=== PATIENT | female | born 1935 | race Caucasian/White ===

== ENCOUNTER → 2020-02-12 | Outpatient (CLI) | payer OTHER ==
[~2020-02-12] MED LIST: ASPI81CH43 GT; ATEN50TA OR; BUPIVACAINE HCL 0.25% P/F 10 ML VIAL ONE; CLON0.1D7 TD; FOSI40TA OR; IOHEXOL 300 MG/ML 100ML BOTTLE IJ ONE; LIDOCAINE 2%HCL (LOCAL ANESTH.) INJ 20ML MDV ONE; PRAVACHOL; TRIA50TA2 OR; methylPREDNISolone ACETATE 80 MG/ML VL ONE
== END | disposition home or self-care (01) ==
LOC: XY 08:29
PROVIDERS: ATTEND Orthopaedic Surgery Adult Reconstructive Orthopaedic Surgery
DX: M25.551 Pain in right hip (principal); Z88.0 Allergy status to penicillin; Z88.8 Allergy status to other drugs, medicaments and biological substances; Z98.890 Other specified postprocedural states; Z79.899 Other long term (current) drug therapy
CPT/HCPCS: 20610; 73501; 77002; A4223; J1040; J3490; Q9967; 76000

== ENCOUNTER → 2020-04-17 | Outpatient (CLI) | payer OTHER ==
[~2020-04-17] MED LIST changes: -BUPIVACAINE HCL 0.25% P/F 10 ML VIAL ONE; -IOHEXOL 300 MG/ML 100ML BOTTLE IJ ONE; -LIDOCAINE 2%HCL (LOCAL ANESTH.) INJ 20ML MDV ONE; -methylPREDNISolone ACETATE 80 MG/ML VL ONE
== END | disposition home or self-care (01) ==
LOC: LAB 11:04
PROVIDERS: ATTEND Physician Assistant
DX: L65.9 Nonscarring hair loss, unspecified (principal)
CPT/HCPCS: 82306

== ENCOUNTER → 2020-09-16 | Outpatient (CLI) | payer OTHER ==
[~2020-09-16] VITALS: Ht 160 cm; Wt 72.6 kg
[~2020-09-16] MED LIST changes: +ADENOSINE 61 MG in GIVE UN-DILUTED 0 ML IV ONE
== END | disposition home or self-care (01) ==
LOC: XY 07:56
PROVIDERS: ATTEND Internal Medicine
DX: Z01.810 Encounter for preprocedural cardiovascular examination (principal); I12.9 Hypertensive chronic kidney disease with stage 1 through stage 4 chronic kidney disease, or unspecified chronic kidney disease; N18.2 Chronic kidney disease, stage 2 (mild); E78.5 Hyperlipidemia, unspecified
CPT/HCPCS: 78452; 93017; A9500; J0153

== ENCOUNTER → 2020-10-02 | Outpatient (CLI) | payer OTHER ==
[~2020-10-02] MED LIST changes: -ADENOSINE 61 MG in GIVE UN-DILUTED 0 ML IV ONE
== END | disposition home or self-care (01) ==
LOC: XYW 10:11
PROVIDERS: ATTEND Internal Medicine
DX: Z01.810 Encounter for preprocedural cardiovascular examination (principal); I51.7 Cardiomegaly
CPT/HCPCS: 93306

== ENCOUNTER 2020-10-19 06:05 | Inpatient (IN) | payer OTHER ==
[2020-10-15 10:08] LABS: Urine WBC None Seen /hpf (0 - 5)
[2020-10-15 10:14] LABS: Basophils # (auto) 0.1 10 ^3/uL (0-0.2); Basophils % (auto) 0.9 % (0.0-2.0); Eosinophils # (auto) 0.1 10 ^3/uL (0-0.8); Eosinophils % (auto) 1.3 % (0.0-7.0); Hematocrit 35.3 % (36.0-46.0); Hemoglobin 12.6 g/dL (12.2-16.2); Lymphocytes # (auto) 2.9 10 ^3/uL (0.4-5.4); Lymphocytes % (auto) 39.3 % (10.0-50.0); Mean Corpuscular Hemoglobin 30.9 pg (28.0-32.0); Mean Corpuscular Hgb Conc. 35.8 g/dL (32.0-36.0); Mean Corpuscular Volume 86.3 fL (80.0-100.0); Monocytes # (auto) 0.5 10 ^3/uL (0-1.3); Monocytes % (auto) 6.6 % (0.0-12.0); Neutrophils # (auto) 3.8 10 ^3/uL (1.6-8.6); Neutrophils % (auto) 51.9 % (37.0-80.0); Nucleated Red Blood Cells % 0.1 %; Red Blood Cells 4.09 10^6/uL (4.0-5.20); Red Cell Distribution Width 13.9 % (11.8-14.3); White Blood Cell 7.4 10^3/uL (4.4-10.8)
[2020-10-15 10:31] LABS: Albumin 3.4 g/dL (3.4-5.0); Calcium 8.8 mg/dL (8.5-10.1); Potassium 3.4 mmol/L (3.5-5.1)
[2020-10-15 10:35] LABS: BUN/Creatinine Ratio 22.9; Bilirubin, Total 0.6 mg/dL (0.2-1.0)
[2020-10-15 14:05] LABS: Urine Bacteria NONE SEEN /hpf (None Seen); Urine Blood Negative /uL (Negative); Urine Specific Gravity 1.017 (1.001-1.035)
[2020-10-19] VITALS (9 sets, daily range): BP systolic 109–131; BP diastolic 51–63
[~2020-10-19] VITALS: Ht 162.6 cm; Wt 82.5 kg
[~2020-10-19 06:05] MED LIST changes: +AMLO-496 PO; +ASCO500T11 PO; +ASPI-231 PO; -ATEN50TA OR; +BIOT50007 PO; +CALC667C5 PO; +CHOL200021 PO; -CLON0.1D7 TD; +MAGN400T40 OR; +MULT-551 OR; +MULT-688 PO; +OMEG10003 PO; +TURM1TAB PO
[2020-10-19] MEDS ORDERED: TRANEXAMIC ACID 20 ML ONE (06:58)
[2020-10-19] MEDS ORDERED: BUPIVACAINE 0.25% INJ 50ML VIAL ONE (06:58)
[2020-10-19] MEDS ORDERED: KETOROLAC TROMETH 30 MG/ML 1ML VIAL ONE (06:59)
[2020-10-19] MEDS ORDERED: VANCOMYCIN HCL 1000 MG VL ONE ×2 (07:00→07:08)
[2020-10-19] MEDS ORDERED: ACETAMINOPHEN IV 100 ML IV ONE (07:09)
[2020-10-19] MEDS ORDERED: TETRACAINE 1% INJ 2 ML VIAL IJ ONE (07:14)
[2020-10-19] MEDS ORDERED: PHENYLEPHRINE HCL 10 MG/ML VL IV ONE (07:19)
[2020-10-19] MEDS ORDERED: MORPHINE SULF(PF) 0.5MG/ML 10ML VIAL ONE (07:19)
[2020-10-19] MEDS ORDERED: MIDAZOLAM HCL 2MG/2ML 2ml VIAL (1mg/ml) ONE (07:19)
[2020-10-19] MEDS ORDERED: fentaNYL CITRATE 100 MCG/2 ML VL ONE (07:19)
[2020-10-19] MEDS ORDERED: DexAMETHasone SOD PHOS 10MG/1ML VIAL INJ IV ONE (07:19)
[2020-10-19] MEDS ORDERED: NALBUPHINE HCL 10 MG/1ml INJECTION SUBCUT ONE (07:45)
[2020-10-19] MEDS ORDERED: ePHEDrine SULFATE 50 MG/ML AMP IV PRN (07:45)
[2020-10-19] MEDS ORDERED: HYDROmorphone HCL 2 MG/ML VL IV PRN ×2 (07:45→09:30)
[2020-10-19] MEDS ORDERED: NALOXONE HCL 0.4 MG/ML VIAL IV PRN (07:45)
[2020-10-19] MEDS ORDERED: DexAMETHasone SOD PHOS 10MG/1ML VIAL INJ IV PRN (07:45)
[2020-10-19] MEDS ORDERED: diphenhdrAMINE HCL 50 MG/1 ML VL IV PRN (07:45)
[2020-10-19] MEDS ORDERED: hydrALAZINE HCL 20 MG/ML VL IV PRN (07:45)
[2020-10-19] MEDS ORDERED: LABETALOL HCL 5 MG/ML 4ML SYRINGE IV PRN (07:45)
[2020-10-19] MEDS ORDERED: ONDANSETRON HCL 4 MG/2 ML VIAL IV PRN ×2 (07:45→09:30)
[2020-10-19] MEDS ORDERED: ACETAMINOPHEN IV 1000 MG/100ML (10MG/ML) IV ONE (08:00)
[2020-10-19] MEDS ORDERED: MORPHINE SULFATE INJECTION 2 MG/2 ML SYRG IV PRN (09:30)
[2020-10-19] MEDS ORDERED: ACETAMINOPHEN 325 MG TAB PO PRN (09:30)
[2020-10-19] MEDS ORDERED: NITROGLYCERIN 0.4 MG SL TAB SL PRN (09:30)
[2020-10-19] MEDS ORDERED: VANCOMYCIN 1GM/250ML 250 ML IV SCH (10:00)
[2020-10-19] MEDS: LACTATED RINGER'S 1,000 ML IV SCH ×2 (10:01→19:30)
[2020-10-19] MEDS: amLODIPine BESYLATE 5 MG TAB PO SCH (10:31)
[2020-10-19] MEDS: DOCUSATE SOD 100 MG CAP PO SCH ×2 (10:32→21:38)
[2020-10-19] MEDS: ASCORBIC ACID 500 MG TAB PO SCH (10:32)
[2020-10-19] MEDS: KETOROLAC TROMETH 30 MG/ML 1ML VIAL IV SCH ×2 (12:00→18:00)
[2020-10-19] MEDS: SODIUM CHLOR 0.9% PF (SALINE LOCK) 10ML VIAL/SYR IV SCH ×2 (15:19→21:38)
[2020-10-19] MEDS: VANCOMYCIN 1GM/250ML 250 ML IV SCH (18:13)
[2020-10-19] MEDS: PRAVASTATIN SODIUM 20 MG TAB PO SCH (21:38)
[2020-10-20] VITALS (15 sets, daily range): BP systolic 119–147; BP diastolic 54–83
[2020-10-20] MEDS: LACTATED RINGER'S 1,000 ML IV SCH ×3 (02:36→15:12)
[2020-10-20 05:38] LABS: Basophils # (auto) 0 10 ^3/uL (0-0.2); Basophils % (auto) 0.1 % (0.0-2.0); Eosinophils # (auto) 0 10 ^3/uL (0-0.8); Eosinophils % (auto) 0.1 % (0.0-7.0); Hematocrit 28.4 % (36.0-46.0); Hemoglobin 10.3 g/dL (12.2-16.2); Lymphocytes % (auto) 18.6 % (10.0-50.0); Mean Corpuscular Hgb Conc. 36.1 g/dL (32.0-36.0); Mean Corpuscular Volume 85.7 fL (80.0-100.0); Monocytes # (auto) 0.7 10 ^3/uL (0-1.3); Neutrophils # (auto) 7.8 10 ^3/uL (1.6-8.6); Neutrophils % (auto) 74.2 % (37.0-80.0); Nucleated Red Blood Cells % 0.1 %; Red Blood Cells 3.31 10^6/uL (4.0-5.20); Red Cell Distribution Width 14.1 % (11.8-14.3); White Blood Cell 10.5 10^3/uL (4.4-10.8)
[2020-10-20 06:02] LABS: Potassium 3.2 mmol/L (3.5-5.1)
[2020-10-20 06:10] LABS: Calcium 7.9 mg/dL (8.5-10.1)
[2020-10-20] MEDS: TRIAMTERENE/HCTZ 75/50MG TABLET PO SCH (06:33)
[2020-10-20] MEDS: LISINOPRIL 20 MG TAB PO SCH (06:33)
[2020-10-20] MEDS: VANCOMYCIN 1GM/250ML 250 ML IV SCH (06:34)
[2020-10-20] MEDS: SODIUM CHLOR 0.9% PF (SALINE LOCK) 10ML VIAL/SYR IV SCH ×3 (06:35→23:01)
[2020-10-20] MEDS: ASCORBIC ACID 500 MG TAB PO SCH (08:16)
[2020-10-20] MEDS: HYDROcodone-ACET 5/325MG TAB PO PRN ×2 (08:16→15:12)
[2020-10-20] MEDS: amLODIPine BESYLATE 5 MG TAB PO SCH (08:16)
[2020-10-20] MEDS: DOCUSATE SOD 100 MG CAP PO SCH ×2 (08:16→22:57)
[2020-10-20] MEDS: ENOXAPARIN SOD 40 MG/0.4 ML SYRINGE SC SCH (08:17)
[2020-10-20] MEDS ORDERED: POTASSIUM CHL 20 Meq TABLET PO ONE (10:45)
[2020-10-20] MEDS ORDERED: LACTULOSE 20Gm/30ML SOLN PO PRN (18:15)
[2020-10-20] MEDS: PRAVASTATIN SODIUM 20 MG TAB PO SCH (22:57)
[2020-10-20] MEDS: TEMAZEPAM 15 MG CAP PO PRN (22:57)
[2020-10-21 04:57] VITALS: BP 147/95
[2020-10-21] MEDS: SODIUM CHLOR 0.9% PF (SALINE LOCK) 10ML VIAL/SYR IV SCH ×3 (06:31→22:00)
[2020-10-21] MEDS: TRIAMTERENE/HCTZ 75/50MG TABLET PO SCH (06:32)
[2020-10-21] MEDS: LISINOPRIL 20 MG TAB PO SCH (06:32)
[2020-10-21 08:00] VITALS: BP 146/63
[2020-10-21 08:53] LABS: Basophils # (auto) 0.1 10 ^3/uL (0-0.2); Basophils % (auto) 0.7 % (0.0-2.0); Eosinophils # (auto) 0 10 ^3/uL (0-0.8); Eosinophils % (auto) 0.3 % (0.0-7.0); Hematocrit 31.9 % (36.0-46.0); Hemoglobin 10.7 g/dL (12.2-16.2); Lymphocytes # (auto) 1.8 10 ^3/uL (0.4-5.4); Lymphocytes % (auto) 15.7 % (10.0-50.0); Mean Corpuscular Hemoglobin 29.4 pg (28.0-32.0); Mean Corpuscular Hgb Conc. 33.6 g/dL (32.0-36.0); Mean Corpuscular Volume 87.3 fL (80.0-100.0); Monocytes # (auto) 0.7 10 ^3/uL (0-1.3); Monocytes % (auto) 5.8 % (0.0-12.0); Neutrophils # (auto) 8.7 10 ^3/uL (1.6-8.6); Neutrophils % (auto) 77.5 % (37.0-80.0); Red Blood Cells 3.66 10^6/uL (4.0-5.20); Red Cell Distribution Width 14.3 % (11.8-14.3); White Blood Cell 11.3 10^3/uL (4.4-10.8)
[2020-10-21 09:13] LABS: BUN/Creatinine Ratio 13.9; Calcium 8.5 mg/dL (8.5-10.1); Potassium 3.5 mmol/L (3.5-5.1)
[2020-10-21] MEDS ORDERED: HYDROmorphone HCL 2 MG/ML VL IV PRN (10:30)
[2020-10-21] MEDS: DOCUSATE SOD 100 MG CAP PO SCH ×2 (10:33→21:20)
[2020-10-21] MEDS: ENOXAPARIN SOD 40 MG/0.4 ML SYRINGE SC SCH (10:34)
[2020-10-21] MEDS: amLODIPine BESYLATE 5 MG TAB PO SCH (10:34)
[2020-10-21 12:00] VITALS: BP 151/72
[2020-10-21] MEDS: HYDROcodone-ACET 5/325MG TAB PO PRN (12:06)
[2020-10-21] MEDS: LACTATED RINGER'S 1,000 ML IV SCH ×2 (12:06→18:42)
[2020-10-21 16:00] VITALS: BP 123/53
[2020-10-21 20:00] VITALS: BP 146/63
[2020-10-21] MEDS: PRAVASTATIN SODIUM 20 MG TAB PO SCH (21:20)
[2020-10-21] MEDS: TEMAZEPAM 15 MG CAP PO PRN (21:20)
[2020-10-21] MEDS: METOPROLOL TARTRATE 25 MG TAB PO SCH (21:21)
[2020-10-21 22:00] VITALS: BP 145/60
[2020-10-22 05:00] VITALS: BP 153/66
[2020-10-22] MEDS: LACTATED RINGER'S 1,000 ML IV SCH (06:07)
[2020-10-22] MEDS: SODIUM CHLOR 0.9% PF (SALINE LOCK) 10ML VIAL/SYR IV SCH ×2 (07:20→14:50)
[2020-10-22 07:29] LABS: BUN/Creatinine Ratio 13.7; Calcium 8.1 mg/dL (8.5-10.1); Potassium 3.3 mmol/L (3.5-5.1)
[2020-10-22 09:00] VITALS: BP 128/62
[2020-10-22] MEDS: ENOXAPARIN SOD 40 MG/0.4 ML SYRINGE SC SCH (09:14)
[2020-10-22] MEDS: DOCUSATE SOD 100 MG CAP PO SCH (09:14)
[2020-10-22] MEDS: METOPROLOL TARTRATE 25 MG TAB PO SCH (09:15)
[2020-10-22] MEDS: amLODIPine BESYLATE 5 MG TAB PO SCH (09:16)
[2020-10-22] MEDS: HYDROcodone-ACET 5/325MG TAB PO PRN (09:40)
[2020-10-22] MEDS ORDERED: POTASSIUM CHL 20 Meq TABLET PO ONE (11:00)
[2020-10-22 12:44] VITALS: BP 128/62
[2020-10-22 13:00] VITALS: BP 127/56
== END 2020-10-22 17:40 | disposition home health service (06) | DRG 469 ==
LOC: SUR 06:05 → TELE 09:16 → TELE-CENTR 15:09
PROVIDERS: ADMIT Orthopaedic Surgery Adult Reconstructive Orthopaedic Surgery; ATTEND Internal Medicine
PROC: 8E0YXBG Computer Assisted Procedure of Lower Extremity, With Computerized Tomography (ICD-10-PCS; 2020-10-19)
PROC: 0SR90JZ Replacement of Right Hip Joint with Synthetic Substitute, Open Approach (ICD-10-PCS; principal; 2020-10-19 07:24)
DX: M16.11 Unilateral primary osteoarthritis, right hip (principal); N17.0 Acute kidney failure with tubular necrosis; E66.9 Obesity, unspecified; Z20.822 Contact with and (suspected) exposure to COVID-19; E78.5 Hyperlipidemia, unspecified; I10 Essential (primary) hypertension; Z96.641 Presence of right artificial hip joint; R79.89 Other specified abnormal findings of blood chemistry; Z79.899 Other long term (current) drug therapy; Z68.31 Body mass index [BMI] 31.0-31.9, adult; Z88.0 Allergy status to penicillin; Z88.8 Allergy status to other drugs, medicaments and biological substances
CPT/HCPCS: 36415; 72170; 80048; 80053; 81001; 85025; 86850; 86900; 86901; 97110; 97116; 97163; 97530; A4565; G0378; J0131; J1100; J1885; J2250; J2405; J3490

== ENCOUNTER → 2020-11-20 | Outpatient (CLI) | payer OTHER ==
[2020-11-20 11:02] LABS: Basophils # (auto) 0.1 10 ^3/uL (0-0.2); Basophils % (auto) 1.4 % (0.0-2.0); Eosinophils # (auto) 0.3 10 ^3/uL (0-0.8); Eosinophils % (auto) 4.5 % (0.0-7.0); Hematocrit 30.9 % (36.0-46.0); Hemoglobin 10.4 g/dL (12.2-16.2); Lymphocytes # (auto) 2.4 10 ^3/uL (0.4-5.4); Lymphocytes % (auto) 34.2 % (10.0-50.0); Mean Corpuscular Hemoglobin 28.7 pg (28.0-32.0); Mean Corpuscular Hgb Conc. 33.6 g/dL (32.0-36.0); Mean Corpuscular Volume 85.6 fL (80.0-100.0); Monocytes # (auto) 0.4 10 ^3/uL (0-1.3); Monocytes % (auto) 6.3 % (0.0-12.0); Neutrophils # (auto) 3.7 10 ^3/uL (1.6-8.6); Neutrophils % (auto) 53.6 % (37.0-80.0); Red Blood Cells 3.61 10^6/uL (4.0-5.20); Red Cell Distribution Width 14.8 % (11.8-14.3); White Blood Cell 6.9 10^3/uL (4.4-10.8)
[2020-11-20 11:34] LABS: Potassium 3.5 mmol/L (3.5-5.1)
[2020-11-20 11:41] LABS: Albumin 3.3 g/dL (3.4-5.0); BUN/Creatinine Ratio 17.7; Bilirubin, Total 0.4 mg/dL (0.2-1.0); Calcium 9.5 mg/dL (8.5-10.1)
== END | disposition home or self-care (01) ==
LOC: LAB 10:47
PROVIDERS: ATTEND Nurse Practitioner Family
DX: N17.9 Acute kidney failure, unspecified (principal)
CPT/HCPCS: 36415; 80053; 85025